=== PATIENT | male | born 1990 | race Caucasian/White ===

== ENCOUNTER 2018-05-02 01:08 | Emergency (ER) | payer BC ==
[~2018-05-02] VITALS: Ht 188 cm; Wt 124.7 kg
[2018-05-02 01:30] VITALS: BP 130/78
[2018-05-02] MEDS ORDERED: MELO7.5T29 PO (01:33)
[2018-05-02] MEDS ORDERED: SULF1TAB24 PO (01:33)
--- NOTE | 2018-05-02 01:34 | PHYS DOC ---
Past Medical History Past Medical History: No Pertinent History Past Surgical History: No Surgical History Alcohol Use: Occasionally Drug Use: None Adult General Chief Complaint Chief Complaint: OTHER COMPLAINTS HPI HPI Patient is a 27 year old male who presents with right thumb pain and swelling along the edge of the nailbed. This started approximately 36 hours ago. There is been no fever. No drainage. Some redness. Increased pain with touch. No numbness, tingling, or paresthesias. No trauma. No previous history of this happening before. Pain is mild to moderate in intensity.[] Review of Systems Review of Systems Constitutional: Denies fever or chills [] Eyes: Denies change in visual acuity, redness, or eye pain [] HENT: Denies nasal congestion or sore throat [] Respiratory: Denies cough or shortness of breath [] Cardiovascular: No chest pain or palpitations[] GI: Denies abdominal pain, nausea, vomiting, bloody stools or diarrhea [] : Denies dysuria or hematuria [] Musculoskeletal: Denies back pain or joint pain [] Integument: Denies rash, see history of present illness[] Neurologic: Denies headache, focal weakness or sensory changes [] Endocrine: Denies polyuria or polydipsia [] All other systems were reviewed and found to be within normal limits, except as documented in this note. Physical Exam Physical Exam Constitutional: Well developed, well nourished, no acute distress, non-toxic appearance. [] HENT: Normocephalic, atraumatic, bilateral external ears normal, oropharynx moist, no oral exudates, nose normal. [] Eyes: PERRLA, EOMI, conjunctiva normal, no discharge. [] Neck: Normal range of motion, no tenderness, supple, no stridor. [] Cardiovascular:Heart rate regular rhythm, no murmur [] Lungs & Thorax: Bilateral breath sounds clear to auscultation [] Abdomen: Not examined. [] Skin: Warm, dry, no erythema, no rash. [] Back: No tenderness, no CVA tenderness. [] Extremities: Right thumb, radial aspect of the nailbed there is erythema, no fluctuance. Mild swelling. Full active range of motion. Patient is distal neurovascularly intact.[] Neurologic: Alert and oriented X 3, normal motor function, normal sensory function, no focal deficits noted. [] Psychologic: Affect normal, judgement normal, mood normal. [] EKG EKG [] Radiology/Procedures Radiology/Procedures [] Course & Med Decision Making Course & Med Decision Making Pertinent Labs and Imaging studies reviewed. (See chart for details) Medical decision making: Patient appears to have a paronychia, no evidence of a felon, no evidence of neuro or vascular compromise. There is no abscess at this point to be drained.[] Dragon Disclaimer Dragon Disclaimer This electronic medical record was generated, in whole or in part, using a voice recognition dictation system. Departure Departure Impression: Primary Impression: Paronychia Disposition: HOME, SELF-CARE Condition: IMPROVED Patient Instructions: Paronychia Additional Instructions: Apply warm compresses for 15 minutes at a time, at least 4 times a day. Follow- up with your regular doctor in 2 days. If he did not have a regular doctor a list of local clinics will be provided for you. Return to the ER if worsening pain or any other concerns. Scripts Meloxicam (MELOXICAM) 7.5 Mg Tablet 7.5 MG PO DAILY, #20 TAB Prov: ANA GONZALEZ DO 05/02/18 Sulfamethoxazole/Trimethoprim (BACTRIM DS TABLET) 1 Each Tablet 1 TAB PO BID, #14 TAB Prov: ANA GONZALEZ DO 05/02/18 ANA GONZALEZ DO May 02, 2018 01:34
== END 2018-05-02 01:48 | disposition home or self-care (01) ==
LOC: ER 01:08
DX: L03.011 Cellulitis of right finger (principal)
CPT/HCPCS: 99283